=== PATIENT | female | born 1995 ===

== ENCOUNTER 2022-02-15 09:13 | Inpatient (IN) | payer SELFPAY ==
[2022-02-12 12:11] LABS: Hematocrit 39.2 % (30.3-42.9); Hemoglobin 12.7 gm/dl (10.1-14.3); Mean Corpuscular HGB Conc 32 % (30-34); Mean Corpuscular Volume 87 fl (79-97); Platelet Count 257 K/mm3 (140-440); Red Blood Count 4.53 M/mm3 (3.65-5.03); Red Cell Distribution Width 14.2 % (13.2-15.2)
[2022-02-15] MEDS ORDERED: FAMOTIDINE 20 MG/2 ML INJ IV NR (09:44)
[2022-02-15] MEDS ORDERED: METOCLOPRAMIDE 10 MG/2 ML INJ IV NR (09:44)
[2022-02-15] MEDS ORDERED: BICITRA ORAL LIQD 30ML PO NR (09:44)
[2022-02-15] MEDS ORDERED: ceFAZolin/Water 2 GM/20 ML 2 GM/20 ML SYRINGE IV NR (10:00)
[2022-02-15] MEDS ORDERED: OXYTOCIN DRIP 30 UNITS/500 ML BAG IV SCH ×2 (10:00→16:00)
--- NOTE | 2022-02-15 10:30 | History and Physical Report ---
History of Present Illness Date of examination: 02/15/22 Date of admission: 02/15/22 09:13 Chief complaint: breech presentation for c/section History of present illness: at 39.0wks here for primary c/section due to breech presentation. Pt admits to movement, denies LOF or vag bleed or feeling ctx. labs with O positive, neg screen, RPR non reactive, HepBsAg neg, HIV neg and rubella immune. Normal 1hrgtt an pap wnl. Fetus with possible coarctation of the aorta. Pt with congenital pectus excavatum and seen by cardiology with normal echocardiogram. Genetics screen with [place]'s syndrome trait Past History Past Medical History: other (Congenital Pectus Excavatum, heartburn, [place]'s syndrome) Past Surgical History: no surgical history Social history: no significant social history - Obstetrical History Expected Date of Delivery: 02/22/22 Actual Gestation: 39 Week(s) 0 Day(s) : 2 Number of Living Children: 2 Medications and Allergies Allergies Allergy/AdvReac Type Severity Reaction Status Date / Time No Known Allergies Allergy Unverified 02/08/22 16:49 Home Medications Medication Instructions Recorded Confirmed Last Taken Type No Known Home Medications [No 02/08/22 02/08/22 Unknown History Reported Home Medications] Active Meds: Active Medications Citric Acid/Sodium Citrate (Bicitra Oral Liqd 30ml) 30 ml PO ONCE NR Stop: 02/15/22 13:00 Famotidine (Famotidine 20 Mg/2 Ml Inj) 20 mg IV ONCE NR Stop: 02/15/22 13:00 Lactated Ringer's (Lactated Ringers) 1,000 mls @ 2,250 mls/hr IV PREOP YEMI Stop: 02/16/22 10:27 Oxytocin/Sodium Chloride (Pitocin/Ns 30 Unit/500ml) 30 units in 500 mls @ 0 mls/hr IV TITR YEMI; Protocol Cefazolin Sodium (Ancef/Sterile Water 2 Gm/20 Ml) 2 gm in 20 mls @ 80 mls/hr IV PREOP NR; Protocol Stop: 02/15/22 12:00 Metoclopramide HCl (Metoclopramide 10 Mg/2 Ml Inj) 10 mg IV ONCE NR Stop: 02/15/22 13:00 Review of Systems All systems: negative (no complaints) - Vital Signs Vital signs: Vital Signs Temp Pulse Resp BP Pulse Ox 97.9 F 78 16 109/75 100 02/12/22 11:50 02/12/22 11:50 02/12/22 11:50 02/12/22 11:50 02/12/22 11:50 Temp Pulse Resp BP Pulse Ox 97.9 F 78 16 109/75 100 02/12/22 11:50 02/12/22 11:50 02/12/22 11:50 02/12/22 11:50 02/12/22 11:50 - Physical Exam Breasts: Positive: deferred Cardiovascular: Regular rate Lungs: Positive: Normal air movement Abdomen: Positive: soft Genitourinary (Female): Positive: normal external genitalia Vulva: both: normal Uterus: Positive: enlarged (non-tender, gravid) - Obstetrical FHR: category 1 Uterine Contraction Monitor Mode: External Uterine Contraction Pattern: Absent Results Result Diagrams: 02/12/22 11:50 All other labs normal. 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 Admit for c/section and I confirmed via u/s that pt is complete breech at bedside 2. Discussed the risks, benefits and alternatives of procedure and consents signed 3. Labs already drawn per nurse report 4. NICU and Anesthesiologist notified Plan of care discussed with pt. All questions encouraged and answered
[2022-02-15] MEDS: LACTATED RINGERS 1,000 ML IV SCH ×2 (10:38→15:48)
--- NOTE | 2022-02-15 11:40 | Anesthesia Consultation ---
Anesthesia Consult and Med Hx Date of service: 02/15/22 - Airway Anesthetic Teeth Evaluation: Good ROM Head & Neck: Adequate Mental/Hyoid Distance: Adequate Mallampati Class: Class II Intubation Access Assessment: Probably Good - Pulmonary Exam CTA: Yes - Cardiac Exam Cardiac Exam: RRR - Pre-Operative Health Status ASA Pre-Surgery Classification: ASA2 Proposed Anesthetic Plan: Spinal - Pulmonary Hx Asthma: No COPD: No Hx Pneumonia: No - Cardiovascular System Hx Hypertension: No - Central Nervous System Hx Seizures: No Hx Psychiatric Problems: No - Endocrine Hx Renal Disease: No Hx End Stage Renal Disease: No Hx Hypothyroidism: No Hx Hyperthyroidism: No - Hematic Hx Sickle Cell Disease: No - Other Systems Hx Alcohol Use: Yes Hx Substance Use: No Hx Cancer: No
--- NOTE | 2022-02-15 11:40 | Anesthesia Day of Surgery ---
Anesthesia Day of Surgery - Day of Surgery Patient Examined: Yes Patient H&P Reviewed: Yes Patient is NPO: Yes
[2022-02-15] MEDS ORDERED: BUPIVACAINE/PF (0.5%) 5 MG/1 ML 30 ML VIAL INFILTRATI ONE (12:00)
[2022-02-15] MEDS ORDERED: KETOROLAC 30 MG/1 ML INJ ONE (12:00)
[2022-02-15] MEDS ORDERED: ONDANSETRON 4 MG/2 ML INJ ONE (12:00)
[2022-02-15] MEDS ORDERED: dexAMETHasone 20 MG/5 ML VIAL ONE (12:00)
[2022-02-15] MEDS ORDERED: SODIUM CHLORIDE 0.9% IRR 1,500 ML BOTTLE IR ONE (12:07)
[2022-02-15] MEDS ORDERED: ceFAZolin/STERILE WATER 2 GM/20 ML SYRINGE IV ONE (12:07)
[2022-02-15] MEDS ORDERED: WATER FOR IRRIG STERILE 1,500 ML BOTTLE IR ONE (12:07)
[2022-02-15] MEDS ORDERED: GLYCOPYRROLATE 0.4 MG/2 ML INJ ONE (12:51)
--- NOTE | 2022-02-15 14:08 | Procedure Note ---
OB Delivery Note - Delivery Date of Delivery: 02/15/22 Surgeon: MIKKI SLAUGHTER Estimated blood loss: other (989cc per QBL by nurse) - Section Preop diagnosis: breech (IUP at 39.0 wks; H/O congenital pectus excavatum; fetus with possible coarctation of aorta) Postop diagnosis: same section procedure: primary low transverse Disposition: floor Complications: none Narrative: Date: 02/15/22 Surgeon: Mikki Slaughter MD Preop Dx: IUP at 39.0wks, breech Postop Dx: same Procedure : Primary Low transverse section Anesthesia: Spinal Intake: 1500cc Output: 100cc EBL: 989cc After the risks, benefits and alternatives of procedure discussed, patient signed consents and was taken to the operating room. Pt was given spinal anesthesia. After same was adequate, patient was prepped and draped in the usual sterile fashion. Quiñonez catheter in place and draining clear urine. Pt was given prophylactic antibiotic per protocol and time out was done Pfannenstiel skin incision was made and taken sharply to the fascia and the incision extended using electrocautery. Superior edge of the fascia was grasped with maricruz clamps and the rectus muscle using blunt dissection and also using electrocautery. Lower portion of the fascia also sharply. Rectus muscle in the midline and Peritoneal cavity entered sharply and extended with good visualization of the bladder. Sj retractor placed without difficulty. The bladder flap was created sharply using metzenbaum scissors. The rectus muscle bilaterally were very thin. Lower uterine segment then entered transversely and amniotic sac entered using allys clamps. Uterine incision extended using bandage scissors. Infant delivered breech, complete presentation, then then both lower extrem, upper extrem followed by the head. Female bulb suctioned, cord clamped and baby handed to waiting pediatricians. Placenta then delivered completely and uterine cavity cleared of all clots and debri. Lower uterine segment with large vessels and penington clamps used for hemostasis until uterus closed. The uterus was not exteriorized and closed in 2 layers using 0-monocryl suture in a running locked fashion and then an additional layer of imbrication suture. A third figure of 8 suture placed centrally and then Excellent hemostasis noted. The gutters were cleared of clots and debri, electrocautery used along bladder peritoneal edge and surgicel placed above uterine incision. The anterior perit oneum closed using 3-0 vicryl suture and rectus muscle reapproximated using 0- vicryl suture. Rectus fascia closed with 0-vicryl suture in a continuous fashion from left to right side and subcutaneous tissue copiously irrigated with normal saline and re-approximated using 3-0 vicryl suture in a continuous fashion. Excellent hemostasis remains. The skin was closed with 4-0 monocryl suture and ster istrips placed with pressure dressing. Sponge, lap, instrument and needle counts x2 were normal. Patient tolerated the procedure well and was taken to recovery room stable. Findings: Viable female infant, APGARS 8/8 and weight 3090g. Normal uterus, tubes and ovaries bilaterally Pathology: small placenta and with presumed coarctation of the aorta - Infant A at 1 minute: 8 (wt 3090g; clear amniotic fluid) at 5 minutes: 8 Gender: Female
[2022-02-15 14:10] LABS: Basophils % (Auto) 0.4 % (0.0-1.8); Eosinophils % (Auto) 0.2 % (0.0-4.3); Hematocrit 34.8 % (30.3-42.9); Hemoglobin 11.5 gm/dl (10.1-14.3); Lymphocytes # (Auto) 1.2 K/mm3 (1.2-5.4); Lymphocytes % (Auto) 8.9 % (13.4-35.0); Mean Corpuscular HGB Conc 33 % (30-34); Mean Corpuscular Volume 86 fl (79-97); Monocytes # (Auto) 0.6 K/mm3 (0.0-0.8); Monocytes % (Auto) 3.9 % (0.0-7.3); Platelet Count 233 K/mm3 (140-440); Red Blood Count 4.03 M/mm3 (3.65-5.03); Red Cell Distribution Width 13.8 % (13.2-15.2)
[2022-02-15] MEDS ORDERED: MORPHINE 4 MG/1 ML INJ IV PRN (15:18)
[2022-02-15] MEDS ORDERED: IBUPROFEN 600 MG TAB PO PRN (15:18)
[2022-02-15] MEDS ORDERED: NALOXONE 0.4 MG/1 ML INJ IV PRN (15:30)
[2022-02-15] MEDS ORDERED: LANOLIN/ZINC/DIMETHICONE (LANSINOH) 7 GM TP PRN (16:00)
[2022-02-15] MEDS ORDERED: ONDANSETRON 4 MG/2 ML INJ IV PRN (16:00)
[2022-02-15] MEDS ORDERED: SIMETHICONE 80 MG CHEW TAB PO PRN (16:00)
[2022-02-15] MEDS ORDERED: WITCH HAZEL/ GLYCERIN PAD TP PRN (16:00)
[2022-02-15] MEDS ORDERED: HYDROCORTISONE 25 MG RECTAL SUPP PR PRN (16:00)
[2022-02-15] MEDS ORDERED: ACETAMINOPHEN 325 MG TAB PO PRN (16:00)
[2022-02-15] MEDS: FERROUS SULFATE 325 MG TAB PO SCH (18:35)
[2022-02-15] MEDS: oxyCODONE /ACETAMINOPHEN 5-325MG TAB PO PRN (18:36)
[2022-02-15] MEDS ORDERED: SENNOSIDES 8.6 MG TAB PO PRN (22:00)
[2022-02-15] MEDS ORDERED: MAGNESIUM HYDROXIDE (MOM) ORAL LIQD UDC PO PRN (22:00)
[2022-02-16] MEDS: oxyCODONE /ACETAMINOPHEN 5-325MG TAB PO PRN (00:54)
[2022-02-16 05:48] LABS: Basophils % (Auto) 0.2 % (0.0-1.8); Hematocrit 33.2 % (30.3-42.9); Hemoglobin 10.8 gm/dl (10.1-14.3); Lymphocytes # (Auto) 1.5 K/mm3 (1.2-5.4); Mean Corpuscular HGB Conc 33 % (30-34); Mean Corpuscular Volume 87 fl (79-97); Monocytes # (Auto) 0.6 K/mm3 (0.0-0.8); Platelet Count 251 K/mm3 (140-440); Red Cell Distribution Width 14.4 % (13.2-15.2)
[2022-02-16] MEDS: IBUPROFEN 800 MG TAB PO PRN ×2 (06:22→13:46)
[2022-02-16] MEDS: FERROUS SULFATE 325 MG TAB PO SCH (09:48)
--- NOTE | 2022-02-16 12:33 | Post Anesthesia Evaluation ---
- Post Anesthesia Evaluation Patient Participated: Yes Airway Patent: Yes Stable Respiratory Function: Yes Nausea/Vomiting: No Temp > 96.8F: Yes Pain Manageable: Yes Adequeate Hydration: Yes Anesthesia Complications: No Block Receding Appropriately: Yes
--- NOTE | 2022-02-16 15:49 | Progress Note ---
Assessment and Plan POD#1 C/S due to breech doing fair with normal vitals and leucocytosis and mild fundal tenderness 1. Pt just completed her ancef x24hrs 2. Will repeat cbc and see wbc trends 3. Dressing removed and same wnl 4. Routine post op care. Subjective Date of service: 02/16/22 Principal diagnosis: POD#1 c/s for breech Interval history: Pt admits to passing flatus and tolerates reg diet. pain controlled with meds. pt is voiding without difficulty. Vag bleed less than a period. Pt is bottle and breast feeding. Objective - Constitutional Vitals: Vital Signs - 12hr 02/16/22 02/16/22 02/16/22 07:41 08:00 10:15 Temperature 98.6 F Pulse Rate 58 L 61 Respiratory 16 Rate Blood Pressure 105/67 O2 Sat by Pulse 99 99 Oximetry O2 Sat by Pulse 99 Oximetry [ Anterior Bilateral Throughout] General appearance: Present: no acute distress - Neck Neck: normal ROM - Respiratory Respiratory effort: normal - Breasts Breasts: deferred - Cardiovascular Rhythm: regular Extremities: No edema - Gastrointestinal General gastrointestinal: Present: soft, non-tender - Genitourinary Female genitourinary: other (Fundus firm 1cm below umbilicus, with mild tender ness; Incision C/D/I with steristrips after dressing removed by me) - Integumentary Integumentary: warm, dry - Neurologic Neurologic: moves all extremities - Psychiatric Psychiatric: cooperative - Labs CBC & Chem 7: 02/16/22 05:14 Labs: Abnormal lab results 02/16/22 Range/Units 05:14 WBC 18.5 H (4.5-11.0) K/mm3 Lymph % (Auto) 8.0 L (13.4-35.0) % Seg Neutrophils % 88.8 H (40.0-70.0) % Seg Neutrophils # 16.4 H (1.8-7.7) K/mm3 Medications & Allergies - Medications Allergies/Adverse Reactions: Allergies No Known Allergies Allergy (Unverified 02/08/22 16:49) Home Medications: Home Medications Medication Instructions Recorded Confirmed Last Taken Type Ibuprofen [Motrin] 800 mg PO Q8HR PRN 21 Days #40 02/15/22 Unknown Rx tablet oxyCODONE /ACETAMINOPHEN [Percocet 1 tab PO Q4HR PRN 21 Days #30 tab 02/15/22 Unknown Rx 5/325] Active Medications: Generic Name Dose Route Start Last Admin Trade Name Freq PRN Reason Stop Dose Admin Acetaminophen 650 mg 02/15/22 16:00 Acetaminophen 325 Mg Tab PO Q4H PRN Fever >100.5/KIM Ferrous Sulfate 325 mg 02/15/22 16:00 02/16/22 09:48 Ferrous Sulfate 325 Mg Tab PO 325 mg QDAY YEMI Administration Hydrocortisone Acetate 25 mg 02/15/22 16:00 Hydrocortisone 25 Mg Rectal Supp CO BID PRN Hemorrhoids Oxytocin/Sodium Chloride 30 units in 500 mls @ 0 mls/hr 02/15/22 10:00 Pitocin/Ns 30 Unit/500ml IV TITR YEMI Protocol As Directed Oxytocin/Sodium Chloride 30 units in 500 mls @ 40 mls/hr 02/15/22 16:00 Pitocin/Ns 30 Unit/500ml IV TITR YEMI Protocol Ibuprofen 600 mg 02/15/22 15:18 Ibuprofen 600 Mg Tab PO Q6H PRN Pain, Mild (1-3) Ibuprofen 800 mg 02/15/22 15:18 02/16/22 13:46 Ibuprofen 800 Mg Tab PO 800 mg Q6H PRN Administration Pain, Moderate (4-6) Magnesium Hydroxide 30 ml 02/15/22 22:00 Magnesium Hydroxide (Mom) Oral Liqd Udc PO QHS PRN Constip Unrelieved By Senna Morphine Sulfate 4 mg 02/15/22 15:18 Morphine 4 Mg/1 Ml Inj IV Q4H PRN Pain , Severe (7-10) Multi-Ingredient Ointment 1 applic 02/15/22 16:00 Lanolin/Zinc/Dimethicone (Lansinoh) 7 Gm TP PRN PRN dryness/cracking Naloxone HCl 0.1 mg 02/15/22 15:30 Naloxone 0.4 Mg/1 Ml Inj IV Q2MIN PRN Res Rate </= 8 or 02 SAT < 92% Ondansetron HCl 4 mg 02/15/22 16:00 Ondansetron 4 Mg/2 Ml Inj IV Q8H PRN Nausea And Vomiting Oxycodone/Acetaminophen 2 tab 02/15/22 15:18 02/16/22 00:54 Oxycodone /Acetaminophen 5-325mg Tab PO 2 tab Q6H PRN Administration Pain, Moderate (4-6) Senna 17.2 mg 02/15/22 22:00 Sennosides 8.6 Mg Tab PO QHS PRN Constipation Simethicone 80 mg 02/15/22 16:00 Simethicone 80 Mg Chew Tab PO Q6H PRN Gas pain Sodium Chloride 10 ml 02/15/22 16:00 Sodium Chloride 0.9% 10 Ml Flush Syringe IV 02/27/22 15:59 PRN NR Witch Génesis/Glycerin 1 each 02/15/22 16:00 Witch Génesis/ Glycerin Pad TP PRN PRN Hemorrhoids/cleansing/soothing
[2022-02-16 17:16] LABS: Basophils # (Auto) 0.1 K/mm3 (0.0-0.1); Basophils % (Auto) 0.6 % (0.0-1.8); Eosinophils # (Auto) 0.1 K/mm3 (0.0-0.4); Eosinophils % (Auto) 0.6 % (0.0-4.3); Hematocrit 34.3 % (30.3-42.9); Hemoglobin 11.2 gm/dl (10.1-14.3); Lymphocytes # (Auto) 2.4 K/mm3 (1.2-5.4); Lymphocytes % (Auto) 13.4 % (13.4-35.0); Mean Corpuscular HGB Conc 33 % (30-34); Mean Corpuscular Volume 87 fl (79-97); Monocytes % (Auto) 5.4 % (0.0-7.3); Platelet Count 294 K/mm3 (140-440); Red Blood Count 3.95 M/mm3 (3.65-5.03); Red Cell Distribution Width 14.4 % (13.2-15.2)
[2022-02-16] MEDS ORDERED: GENTAMICIN 300 MG in SODIUM CHLORIDE 0.9% 100 ML IV SCH (18:30)
[2022-02-16] MEDS ORDERED: SODIUM CHLORIDE 0.9% 250ML 250 ML ONE (18:44)
[2022-02-16] MEDS ORDERED: SODIUM CHLORIDE 0.9% 100 ML IVPB IV SCH (19:00)
[2022-02-16] MEDS: AMPICILLIN/NS 2 GM/100 ML 2 GM/100 ML BAG IV SCH (21:01)
[2022-02-17] MEDS: AMPICILLIN/NS 2 GM/100 ML 2 GM/100 ML BAG IV SCH ×2 (02:57→10:10)
[2022-02-17] MEDS ORDERED: SODIUM CHLORIDE 0.9% 500 ML 500 ML IV SCH (03:00)
[2022-02-17] MEDS: FERROUS SULFATE 325 MG TAB PO SCH (10:14)
[2022-02-17] MEDS ORDERED: FLU VACC QUAD 2021-22(6MOS UP)/PF 60 MCG/0.5 ML SYRINGE IM ONE (10:36)
--- NOTE | 2022-02-17 11:30 | Progress Note ---
Assessment and Plan A: PP Day #2 Stable P: Follow Routine Orders D/C Home today RTO in 6 Weeks Subjective - Subjective Date of service: 02/17/22 Principal diagnosis: POD#1 c/s for breech Patient reports: appetite normal, voiding normally, pain well controlled, flatus, ambulating normally [place]: in NICU, bottle feeding Objective - Vital Signs Latest vital signs: Vital Signs Temp Pulse Resp BP Pulse Ox Pulse Ox 02/17/22 09:24 100 02/17/22 07:59 97.9 F 59 L 17 96/61 100 02/17/22 01:02 97.9 F 53 L 18 100/51 100 02/16/22 19:30 98 02/16/22 16:34 98.7 F 81 20 111/69 98 Intake and Output 02/16/22 02/17/22 02/17/22 22:59 06:59 14:59 Intake Total 450 150 120 Balance 450 150 120 Intake: IV 150 150 AMPICILLIN/NS 2 GM/100 ML 100 100 2 gm In 100 ml @ 100 mls /hr IV Q6H YEMI Rx#: [id number] CLEOCIN 900 MG/50 mL 900 50 50 mg In 50 ml @ 100 mls/hr IV Q8H YEMI Rx#:[id number] Oral 300 120 Other: Total, Intake Amount 200 120 # Voids Void 1 1 - Exam Breasts: Present: normal Cardiovascular: Present: Regular rate Lungs: Present: Clear to auscultation, Normal air movement Abdomen: Present: normal appearance, soft, normal bowel sounds Uterus: Present: normal, firm, fundal height below umbilicus Extremities: Present: normal - Labs Labs: Abnormal lab results 02/16/22 Range/Units 16:22 WBC 17.9 H (4.5-11.0) K/mm3 [place] # (Auto) 1.0 H (0.0-0.8) K/mm3 Seg Neutrophils % 80.0 H (40.0-70.0) % Seg Neutrophils # 14.4 H (1.8-7.7) K/mm3
--- NOTE | 2022-02-17 11:33 | Discharge Summary ---
Providers - Providers Date of Admission: 02/15/22 09:13 Date of discharge: 02/17/22 Attending physician: DESHAWN SLAUGHTER Primary care physician: DESHAWN SLAUGHTER Hospitalization Reason for admission: section Delivery: Procedure: primary low transverse Episiotomy: none Laceration: none Other procedures: none complications: none Discharge diagnosis: IUP at term delivered [place] baby: female Condition at discharge: Good Disposition: 01 HOME / SELF CARE / HOMELESS Plan - Discharge Medications Prescriptions: Ibuprofen [Motrin] 800 mg PO Q8HR PRN 21 Days #40 tablet PRN Reason: Pain, Moderate (4-6) oxyCODONE /ACETAMINOPHEN [Percocet 5/325] 1 tab PO Q4HR PRN 21 Days #30 tab PRN Reason: Pain , Severe (7-10) - Provider Discharge Summary Activity: routine, no sex for 6 weeks, no heavy lifting 4 weeks, no strenuous exercise Diet: routine Instructions: routine Additional instructions: [] Smoking cessation referral if applicable(refer to patient education folder for contact #) [] Refer to [facility] Booklet Call your doctor immediately for: * Fever > 100.5 * Heavy vaginal bleeding ( >1 pad per hour) * Severe persistent headache * Shortness of breath * Reddened, hot, painful area to leg or breast * Drainage or odor from incision. * Keep incision clean and dry at all times and follow doctor's instructions regarding bathing/showering - Follow up plan Follow up: DESHAWN SLAUGHTER MD [Primary Care Provider] - 7 Days
[2022-02-17 12:51] VITALS: BP 108/68
== END 2022-02-17 13:40 | disposition home or self-care (01) | DRG 787 ==
LOC: APU 09:13 → OB 14:49
PROVIDERS: ADMIT Obstetrics & Gynecology; ATTEND Obstetrics & Gynecology
PROC: 10D00Z1 Extraction of Products of Conception, Low, Open Approach (ICD-10-PCS; principal; 2022-02-15)
DX: O32.1XX0 Maternal care for breech presentation, not applicable or unspecified (principal); O99.12 Other diseases of the blood and blood-forming organs and certain disorders involving the immune mechanism complicating childbirth; Z3A.39 39 weeks gestation of pregnancy; Z37.0 Single live birth; Z20.822 Contact with and (suspected) exposure to COVID-19; D72.829 Elevated white blood cell count, unspecified
CPT/HCPCS: 36415; 85025; 85027; 86592; 86850; 86900; 86901; 88307; 90686; 99211; G0378; J1815; J3490; J7121; J7502; G0463; J0290; J0690; J1100; J1580; J1885; J2405; J2765; J7040; J7050; J7120; U0003